=== PATIENT | female | born 1980 ===

== ENCOUNTER → 2025-02-25 08:27 | Outpatient (CLI) | payer OTHER, SELFPAY ==
--- NOTE | 2025-02-25 08:30 | DI.US.S_ITS ---
PROCEDURE: US EXTREMITY NONVASC LOWER RT INDICATIONS: RIGHT CALF PAIN; POSSIBLE MUSCLE TEAR TECHNIQUE: Real-time scanning was performed of the right calf , with image documentation. COMPARISON: None. FINDINGS: Targeted sonographic evaluation of the right calf performed. No obvious muscle strain identified. Near the distal insertion of the gastrocnemius muscle, there is a poorly defined oblong fluid collection measuring 1.5 x 0.5 x 1.1 cm, 0.7 cc. This collection is superficial to the muscle. IMPRESSION: Small volume fluid superficial to the gastrocnemius muscle near the distal insertion. No definite muscle strain identified. If symptoms persist or remain concerning, recommend MRI examination. Dictated by: Ryann Whyte M.D. on 02/25/2025 at 11:40 Approved by: Ryann Whyte M.D. on 02/25/2025 at 11:43
== END ==
PROVIDERS: PCP Nurse Practitioner Family; Referring Provider Family Medicine; Visit Provider Family Medicine
DX: M79.661 Pain in right lower leg (principal)
CPT/HCPCS: 76882